=== PATIENT | female | born 1985 | race Caucasian/White ===

== ENCOUNTER → 2017-10-15 08:20 | Outpatient (REF) | payer BC, SELFPAY ==
[2017-10-15 20:53] LABS: Cholesterol 158 mg/dL (50-200); HDL Cholesterol 66 mg/dL (40-60); LDL CHOLESTEROL 84 mg/dL (<100); TSH (W/Ref FT4) 0.81 uIU/mL (0.358-3.74); Triglyceride 39 mg/dL (30-150)
== END ==
LOC: NCHCN 08:20
PROVIDERS: PCP Family Medicine; Visit Provider Physician Assistant Medical
DX: E23.0 Hypopituitarism (principal)
CPT/HCPCS: 80061; 83721; 84443

== ENCOUNTER 2019-08-02 09:48 | Outpatient (REF) | payer BC, SELFPAY ==
[2019-08-03 15:52] LABS: Chlamydia Result Negative (Negative); GC Result Negative (Negative)
== END 2019-08-02 10:08 ==
LOC: LBN 09:48
PROVIDERS: Visit Provider Nurse Practitioner Women's Health
DX: Z11.3 Encounter for screening for infections with a predominantly sexual mode of transmission (principal)
CPT/HCPCS: 87491; 87591

== ENCOUNTER 2020-06-28 18:38 | Outpatient (REF) | payer BC, SELFPAY ==
--- NOTE | 2020-06-28 17:00 | PAPFT_PTH ---
PATIENT: [facility]oraida Camacho [id number]GE/SX: 35/F ROOM: RE06/28/[address]: Jeferson Hayden : 1985 BED: DIS: 06/28/2020 SPEC #: [id number] RECD: 06/29/20 12:37 STATUS: EBONY RESakshi #: [id number] CAROLINE: 06/28/20 17:[address]: Jeferson Hayden DEPT: [facility] Cytology RECD BY: Emely Graham Tissues: 1 - CX/ENDOCX FOR PAP SMEARS Procedures: PAP THIN PREP/UVM Screening HPV DNA PROBE Comments: [id number]
== END 2020-06-28 18:39 | disposition home or self-care (01) ==
LOC: NCHCN 18:38
PROVIDERS: Visit Provider Physician Assistant Medical
DX: Z12.4 Encounter for screening for malignant neoplasm of cervix (principal); Z11.51 Encounter for screening for human papillomavirus (HPV)
CPT/HCPCS: 88142; 87624

== ENCOUNTER 2021-07-20 17:53 | Outpatient (REF) | payer BC, SELFPAY | END 2021-07-20 17:54 | disposition home or self-care (01) | LOC: NCHCN 17:53 | PROVIDERS: PCP Family Medicine; Visit Provider Family Medicine | DX: N89.8 Other specified noninflammatory disorders of vagina (principal) | CPT/HCPCS: 87480; 87510; 87660 ==

== ENCOUNTER 2021-12-08 19:26 | Outpatient (REF) | payer BC, SELFPAY | END 2021-12-08 19:27 | disposition home or self-care (01) | LOC: LBN 19:26 | PROVIDERS: PCP Family Medicine; Visit Provider Nurse Practitioner Family | DX: J02.9 Acute pharyngitis, unspecified (principal) | CPT/HCPCS: 87070 ==

== ENCOUNTER 2022-04-16 10:24 | Outpatient (REF) | payer BC, SELFPAY | END 2022-04-16 10:25 | disposition home or self-care (01) | LOC: NCHCN 10:24 | PROVIDERS: PCP Family Medicine; Visit Provider Physician Assistant Medical | DX: N39.0 Urinary tract infection, site not specified (principal) | CPT/HCPCS: 87077; 87086; 87186 ==

== ENCOUNTER 2023-11-21 08:32 | Outpatient (CLI) | payer BC, SELFPAY ==
[2023-11-21 08:22] LABS: ALT 28 U/L (14-59); AST 21 U/L (15-37); Albumin 4.2 g/dL (3.4-5.0); Alkaline Phosphatase 45 U/L (46-116); Anion Gap 9.1 mmol/L (3-11); BUN 13 mg/dL (7-18); Bilirubin, Total 0.65 mg/dL (0.2-1.0); CO2 23.9 mmol/L (21.0-32.0); CREATININE 0.9 mg/dL (0.55-1.02); Calculated LDL 85 mg/dL (<100); Chloride 107 mmol/L (98-107); Cholesterol 161 mg/dL (<200); Glucose 87 mg/dL (74-106); HDL Cholesterol 69 mg/dL (40-60); Magnesium 2.2 mg/dL (1.8-2.4); Potassium 3.9 mmol/L (3.5-5.1); Sodium 140 mmol/L (136-145); Total Protein 7.3 g/dL (6.4-8.2); Triglyceride 36 mg/dL (<150)
== END 2023-11-21 08:33 | disposition home or self-care (01) ==
LOC: LBO 08:32
PROVIDERS: PCP Family Medicine; Visit Provider Physician Assistant Medical
DX: Z00.00 Encounter for general adult medical examination without abnormal findings (principal); R25.1 Tremor, unspecified
CPT/HCPCS: 36415; 80053; 80061; 83735

== ENCOUNTER 2024-01-25 09:17 | Emergency (ER) | payer BC, SELFPAY ==
[2024-01-25 09:22] VITALS: BP 122/82; PULSE 96; RESP 16; TEMP 36.6; O2SAT 98
[2024-01-25 09:24] VITALS: BP 122/82; PULSE 98; RESP 16; TEMP 36.6; O2SAT 98
--- NOTE | 2024-01-25 09:30 | DI.RAD_ITS ---
Exam(s) XR CHEST 2V PA LATERAL EXAM: XR CHEST 2V PA LATERAL CLINICAL HISTORY: Cough TECHNIQUE: 2D digital imaging was performed of the chest. Two images were obtained. PA and lateral views were obtained. COMPARISON: No exams were available for comparison FINDINGS: MEDIASTINUM: Normal. HEART: Normal. PULMONARY VASCULATURE: Normal. LUNGS: Clear. PLEURAL SPACE: No pleural effusion or pneumothorax. BONE:Within normal limits for the patient's age. OTHER FINDINGS:Normal. IMPRESSION: No acute pulmonary findings. DATA REPOSITORY: RADIATION DOSE DELIVERED:
--- NOTE | 2024-01-25 09:33 | ED.GENADUL_ITS ---
Discharge Plan Disposition Patient Disposition: Home Condition: Stable Discharge Details Clinical Impression: Cough in adult Primary Care Provider: Jeferson Hayden ED Provider: Parris Darby Home Meds and New Rx's Prescriptions: New promethazine-DM 6.25-15 mg/5 mL syrup 7.5 ml PO QHS PRN (Reason: cough) Qty: 118 0RF Rx Instructions: 7.5 mL at bedtime as needed for cough. Continued topiramate [Topamax] 50 mg tablet 50 mg PO DAILY Mirena 20 mcg/24 hours (5 yrs) 52 mg intrauterine device 1 device IY ONCE Rx Instructions: as a single dose loratadine [Claritin] 10 MG tablet 10 mg PO DAILY PRN PRN ibuprofen 600 MG tablet 600 mg PO Q6H PRN PRNQty: 30 0RF acetaminophen [Mapap Extra Strength] 500 MG tablet 1,000 mg PO Q8H PRN PRNQty: 30 0RF benzonatate 100 mg capsule 100 mg PO TID PRN (Reason: cough) Qty: 21 0RF Rx Instructions: May take 1 capsule every 8 hours as needed for cough Discharge Instructions Instructions: Cough, Adult ED Additional Instructions: Chest x-ray is within normal limits. No evidence of pneumonia at this time. Please take the Tessalon Perles as prescribed. Use the albuterol inhaler 1 or 2 puffs every 4-6 hours as needed for shortness of breath. Use the Phenergan DM at bedtime to help you sleep for the cough. Follow up with primary care provider in 3-5 days. Return to ED sooner if any worsening or concerns. Please take Tylenol or Ibuprofen with food every 4-6 hours as needed for pain and swelling. Referrals: Jeferson Hayden PA [Primary Care Provider] - 5 days HPI General Mode of arrival: ambulatory . Date/Time Provider Initiated Documentation: 01/25/24 09:26 . Limitations to Documentation: no limitations . Information obtained by: patient, RN notes reviewed and old records reviewed . HPI Narrative: 38-year-old female presents to the ER with a chief complaint of URI type symptoms, will [id number] remedies with little to no relief. She has been taking Tylenol PM, decongestant. She reports productive cough with green and brown sputum. Denies any ear pain throat pain or any other associated symptoms. She does endorse some chest tightness she is attributing this to the coughing. Related Data Home Medications ?Medication ?Instructions ?Recorded ?Confirmed loratadine 10 mg tablet (Claritin) 10 mg PO DAILY PRN PRN 06/04/16 01/25/24 acetaminophen 500 mg tablet (Mapap 1,000 mg (2 x 500 mg) PO Q8H PRN 06/05/16 01/25/24 Extra Strength) PRN #30 tabs ibuprofen 600 mg tablet 600 mg PO Q6H PRN PRN #30 tabs 06/05/16 01/25/24 levonorgestrel 21 mcg/24 hr (up to 1 device intrauterine ONCE 08/02/19 01/25/24 8 years) 52 mg intrauterine device (Mirena) topiramate 50 mg tablet (Topamax) 50 mg PO DAILY 08/02/19 01/25/24 benzonatate 100 mg capsule 100 mg PO TID PRN cough #21 caps 01/25/24 promethazine-DM 6.25 mg-15 mg/5 mL 7.5 ml PO QHS PRN cough #118 mL 01/25/24 oral syrup Previous Rx's ?Medication ?Instructions ?Recorded acetaminophen 500 mg tablet (Mapap 1,000 mg (2 x 500 mg) PO Q8H PRN 06/05/16 Extra Strength) PRN #30 tabs ibuprofen 600 mg tablet 600 mg PO Q6H PRN PRN #30 tabs 06/05/16 benzonatate 100 mg capsule 100 mg PO TID PRN cough #21 caps 01/25/24 promethazine-DM 6.25 mg-15 mg/5 mL 7.5 ml PO QHS PRN cough #118 mL 01/25/24 oral syrup Allergies Allergy/AdvReac Type Severity Reaction Status Date / Time amoxicillin AdvReac Mild COLD SORES Unverified 01/25/24 09:21 INSIDE HER MOUTH General Stated Complaint: RespSymp BOBY: 4 Review of Systems Respiratory Respiratory: Reports change in phlegm color, Reports chest congestion and Reports cough Exam Narrative Exam Narrative: Constitutional: Alert and oriented x3. Appears stated age. Normal body habitus. Head: Normocephalic, no trauma. Eyes: Pupils PERRL, Red reflex noted, EOM's intact. Eyelids symmetrical without lesions, discharge, or swelling. ENT: Bilateral TM's WNL, External ear normal to inspection, no mastoid TTP, swelling, or erythema, Nasal turbinates WNL, no nasal discharge. Normal dentition, Posterior pharynx WNL, no exudate. Chest: RRR, Normal S1, S2, distal pulses intact. Resp: Lungs clear to auscultation bilaterally, no wheezes, rales, or rhonchi. Abdomen: Soft, non-distended, Normoactive bowel sounds all 4 quads. Musculoskeletal: Normal gait, Moves all 4 extremities without difficulty. Skin: No suspicious rashes or lesions. Capillary refill less than 2 sec. Neurologic: Cranial nerves II-XII intact. Alert and oriented x 3. Motor: No deficits noted. Sensory: Intact bilaterally all 4 extremities. Hematologic/Lymphatic: No ecchymosis, no lymphadenopathy. Course Vital Signs Vital signs: Vital Signs Temperature 36.6 C 01/25/24 09:22 Pulse 96 H 01/25/24 09:22 Respiratory Rate 16 01/25/24 09:22 Blood Pressure 122/82 01/25/24 09:22 Pulse Oximetry 98 01/25/24 09:22 Temperature 36.6 C 01/25/24 09:24 Temperature Source Temporal Artery Scan 01/25/24 09:24 Pulse 98 H 01/25/24 09:24 Respiratory Rate 16 01/25/24 09:24 Respiratory Effort Normal, Non-Labored 01/25/24 09:27 Respiratory Depth Normal 01/25/24 09:27 Blood Pressure 122/82 01/25/24 09:24 Blood Pressure Position Sitting 01/25/24 09:24 Pulse Oximetry 98 01/25/24 09:24 Oxygen Delivery Method Room Air 01/25/24 09:24 Oxygen Flow Rate 0 01/25/24 09:22 Pain Level 7 01/25/24 09:24 Medical Decision Making 38-year-old female presents to the ER with a chief complaint of URI type symptoms, will [id number]-[id number] remedies with little to no relief. She has been taking Tylenol PM, decongestant. Chest x-ray ordered, Fluvid swab, will consider albuterol inhaler, Tessalon Perles or phenergan DM. X-ray shows no acute pulmonary findings. No infiltrates effusions or pneumothorax. Will send patient home with an albuterol inhaler. Prescription s ent for Tessalon Perles and Phenergan DM. This text was generated using [employer] dictation system, please disregard any oddities of phrase or misspellings. Imaging Data Radiologic Study: Imaging: X-Ray Radiologist's impression: CLINICAL HISTORY: Cough TECHNIQUE: 2D digital imaging was performed of the chest. Two images were obtained. PA and lateral views were obtained. COMPARISON: No exams were available for comparison FINDINGS: MEDIASTINUM: Normal. HEART: Normal. PULMONARY VASCULATURE: Normal. LUNGS: Clear. PLEURAL SPACE: No pleural effusion or pneumothorax. BONE:Within normal limits for the patient's age. OTHER FINDINGS:Normal. IMPRESSION: No acute pulmonary findings. Lab Data Lab results reviewed: Yes I reviewed the patient's lab results. Labs: Laboratory Tests Range/Units 01/25/24 09:44 COVID-19 Source Nasopharynx SARS-CoV-2 (PCR) (Negative) Negative Influenza Type A (PCR) (Negative) Negative Influenza Type B (PCR) (Negative) Negative RSV (PCR) (Negative) Negative Quality:SDOH Health Related Social Needs: No Data to Display PFSH All Active Problems (Updated 01/25/24 @ 10:26 by Parris Darby NP) Cough in adult (Acute) IUD surveillance (Acute 08/02/19) Mirena for menstrual control Medical History Obesity Constipation Environmental allergies Polyp of gallbladder Surgical History Repair of umbilical hernia (06/05/16) Family History Other Brain malignancy Diabetes Essential hypertension Heart disease Social History Smoking/Tobacco Use Status: Never Smoking risk assessment performed?: Yes Alcohol Intake: current Alcohol Intake frequency: holidays/special occasions only Drug use: Never Substance use type: does not use Housing: house Do you feel safe at home: Yes Do you feel safe in your relationship?: Yes Female Reproductive History Menstrual control method: progestin IUCD and permanent sterilization ( with vasectomy) History History 3 Para 3 Hx # Term Pregnancies Multiple births Hx # Pregnancies Ectopic pregnancies AB induced Hx Number of Living Children AB spontaneous
[2024-01-25] MEDS: Albuterol HFA 8 GM 60 PUFF INH IH (10:29)
[2024-01-25] MEDS: Benzonatate 100 MG CAP PO ×2 (10:30)
[2024-01-25] MEDS: Inhaler, Assist Device 1 EACH MC (10:31)
[2024-01-25 10:38] LABS: COVID-19 PCR Negative (Negative); Influenza A PCR Negative (Negative); Influenza B PCR Negative (Negative); RSV PCR Negative (Negative)
[2024-01-25 10:43] VITALS: PULSE 89; RESP 16; O2SAT 99
[2024-01-25 10:51] LABS: Source Nasopharynx
== END 2024-01-25 10:39 | disposition home or self-care (01) ==
PROVIDERS: Emergency Provider Registered Nurse Emergency; PCP Physician Assistant Medical
DX: R05.9 Cough, unspecified (principal)
CPT/HCPCS: 87637; 99284; 71046; 99283

== ENCOUNTER 2024-06-16 10:02 | Outpatient (CLI) | payer BC, SELFPAY ==
[2024-06-16 12:27] LABS: FREE T4 0.89 ng/dL (0.76-1.46); TSH 0.41 uIU/mL (0.36-3.74)
[2024-06-16 18:01] LABS: T3, Total 125 ng/dL (97-169)
== END 2024-06-16 10:03 | disposition home or self-care (01) ==
LOC: LBO 10:03
PROVIDERS: PCP Physician Assistant Medical; Visit Provider Family Medicine
DX: E04.9 Nontoxic goiter, unspecified (principal)
CPT/HCPCS: 36415; 84439; 84443; 84480

== ENCOUNTER 2024-08-03 16:56 | Outpatient (REF) | payer BC, SELFPAY ==
[2024-08-03 17:59] LABS: ALT 50 U/L (14-59); AST 26 U/L (15-37); Albumin 4.4 g/dL (3.4-5.0); Alkaline Phosphatase 51 U/L (46-116); Anion Gap 12.9 mmol/L (3-11); BUN 18 mg/dL (7-18); Bilirubin, Total 0.5 mg/dL (0.2-1.0); CO2 20.1 mmol/L (21.0-32.0); CREATININE 0.7 mg/dL (0.55-1.02); Calcium 9.6 mg/dL (8.5-10.1); Chloride 108 mmol/L (98-107); Estimated GFR 112.05 (mL/min/1.73m2); Glucose 95 mg/dL (74-106); Potassium 4.2 mmol/L (3.5-5.1); Sodium 141 mmol/L (136-145); Total Protein 7.8 g/dL (6.4-8.2)
[2024-08-03 18:03] LABS: Abs Immature Grans 0.03 10^3/uL (0.0-0.06); Absolute Basophil Count 0.05 10^3/uL (0.0-0.2); Absolute Eosinophil Count 0.16 10^3/uL (0.0-0.7); Absolute Lymphocyte Count 1.81 10^3/uL (1.2-3.4); Absolute Monocyte Count 0.67 10^3/uL (0.1-0.8); Absolute Neutrophil Count 6.68 10^3/uL (1.2-6.7); Basophils % 0.5 %; Eosinophils % 1.7 %; HCT 42.7 % (36.0-46.0); HGB 14.7 g/dL (11.2-15.7); Immature Grans % 0.3 %; Lymphocytes % 19.3 %; MCH 33.6 pg (27.0-33.0); MCHC 34.4 % (32.0-36.0); MCV 98 fL (80-95); MPV 10.5 fL (8.0-11.0); Monocytes % 7.1 %; Neutrophils % 71.1 %; Platelet Count 227 10^3/uL (130-400); RBC 4.38 10^6/uL (3.93-5.22); RDW 11.8 % (11.7-14.6); RDW-SD 42.5 fL
== END 2024-08-03 16:57 | disposition home or self-care (01) ==
LOC: NCHCN 16:56
PROVIDERS: PCP Physician Assistant Medical; Visit Provider Physician Assistant Medical
DX: R05.3 Chronic cough (principal)
CPT/HCPCS: 80053; 85025

== ENCOUNTER 2024-11-15 15:42 | Outpatient (REF) | payer BC, SELFPAY ==
[2024-11-15 17:13] LABS: Hemoglobin A1C 4.7 % (<5.7)
[2024-11-16 15:30] LABS: Calculated LDL 93 mg/dL (<100); Cholesterol 172 mg/dL (<200); HDL Cholesterol 70 mg/dL (>or=50); Triglyceride 46 mg/dL (<150)
== END 2024-11-15 15:43 | disposition home or self-care (01) ==
LOC: NCHCN 15:42
PROVIDERS: PCP Physician Assistant Medical; Visit Provider Physician Assistant Medical
DX: Z13.6 Encounter for screening for cardiovascular disorders (principal); Z13.1 Encounter for screening for diabetes mellitus
CPT/HCPCS: 80061; 83036

== ENCOUNTER 2024-11-30 01:31 | Outpatient (CLI) | payer BC, SELFPAY ==
--- NOTE | 2024-11-30 | DI.MAMMO_ITS ---
Exam(s) MAMMO SCREENING EXAM: MAMMO SCREENING CLINICAL HISTORY: SCREENING MAMMO Z12.31. TECHNIQUE: Bilateral full field digital CC and MLO mammographic images were obtained with 3D tomosynthesis and utilizing computer aided detection (CAD). COMPARISON: Prior mammograms were reviewed. FINDINGS: There has been no significant change in the appearance and distribution of the fibroglandular tissue. There are no spiculated masses nor malignant appearing microcalcification groups. Small nodule posteriorly in the right breast has appearance of benign intramammary lymph node. There is no significant architectural distortion nor skin thickening-retraction. IMPRESSION: No radiographic evidence of malignancy. BI-RADS Category 1 - Negative Breast Density - Category B - There are scattered areas of fibroglandular density. Breast density Category C or D implies that the patient has dense breast tissue. Dense breast tissue can make it harder to find cancer on a mammogram. Dense breast tissue is also associated with an increased risk of breast cancer. This information about the result of the mammogram report was provided to the patient to raise their awareness. Use this report when you speak with the patient about their risks for breast cancer, which includes their family history. At that time, you may recommend additional screening tests (Ultrasound or MRI) as these tests may add significant information. A negative radiographic report should not delay biopsy if a dominant or clinically suspicious mass is present. Up to ten percent of cancers are not identified on mammography. A negative report may reinforce clinical impression. Adenosis and dense breasts may obscure an underlying neoplasm. False positive reports average 6 to 10%. Patient will receive a letter notifying them of these results.
== END 2024-11-30 01:51 ==
LOC: DI 01:31
PROVIDERS: PCP Physician Assistant Medical; Visit Provider Physician Assistant Medical
DX: Z12.31 Encounter for screening mammogram for malignant neoplasm of breast (principal); R92.323 Mammographic fibroglandular density, bilateral breasts
CPT/HCPCS: 77063; 77067